=== PATIENT | female | born 1995 | race Caucasian/White ===

== ENCOUNTER 2023-11-20 14:08 | Emergency (ER) | payer SELFPAY ==
[~2023-11-20] VITALS: Ht 157.5 cm; Wt 51.0 kg
[2023-11-20] VITALS (9 sets, daily range): BP systolic 93–117; BP diastolic 61–78
[2023-11-20 14:54] LABS: BASO% 0.4 % (0-3); EOS% 1.3 % (0-8); HEMATOCRIT 36.2 % (37.0-47.0); HEMOGLOBIN 11.4 g/dl (12.0-16.0); IMMATURE GRANULOCYTES 0.2 % (0.0-5.0); LYMPH% 17.2 % (15-41); MEAN CELL VOLUME 89.2 fL CALC (80.0-100.0); MEAN CORPUSCULAR HGB 28.1 pG CALC (26.0-32.0); MEAN CORPUSCULAR HGB CONC 31.5 g/dL CAL (32.0-36.0); MONO% 6.5 % (2-13); NEUT# 3.9 thou/uL (2.00-7.15); NEUT% 74.4 % (42-76); RED BLOOD COUNT 4.06 mill/uL (4.20-5.60); RED CELL DISTRI WIDTH 13.7 % (11.5-15.5)
[2023-11-20 14:54] LABS: URINE BILIRUBIN - DIPSTICK Negative (NEGATIVE); URINE BLOOD DIPSTICK Negative (NEGATIVE); URINE GLUCOSE - DIPSTICK Negative (NEGATIVE); URINE KETONE Negative (NEGATIVE); URINE LEUK ESTERASE Negative (NEGATIVE); URINE NITRITE - DIPSTICK Negative (Negative); URINE PROTEIN - DIPSTICK Negative (NEG-TRACE); URINE UROBILINOGEN - DIPSTICK 0.2 E.U./dL (0.2)
[2023-11-20 14:55] LABS: URINE COLOR Yellow
[2023-11-20 15:06] LABS: ALBUMIN 4.1 g/dL (3.2-5.0); ALKALINE PHOSPHATASE 37 u/l (38-126); ANION GAP 9 (6-22 (CALC)); BILIRUBIN, TOTAL 0.5 mg/dL (0.02-1.3); BUN 7 mg/dL (7-17); BUN/CREATININE RATIO 11 (12-20 (CALC)); CARBON DIOXIDE 25 mmol/l (22-30); CHLORIDE 109 mmol/l (95-108); CREATININE 0.7 mg/dL (0.5-1.0); ESTIMATED GFR 121 ML/MIN (>=90 (CALC)); POTASSIUM 3.8 mmol/l (3.5-5.1); SGOT/AST 21 u/l (14-36); SODIUM 140 mmol/l (137-146); TOTAL PROTEIN 6.6 g/dL (6.3-8.2)
[2023-11-20 15:22] LABS: BETA-HCG, QUANT(RESULT NUMBER) <2 mIU/mL
== END 2023-11-20 16:15 | disposition home or self-care (01) | DRG 761 ==
LOC: ED 14:08
PROVIDERS: Nurse Practitioner
DX: N93.9 Abnormal uterine and vaginal bleeding, unspecified (principal); N80.9 Endometriosis, unspecified; Z90.79 Acquired absence of other genital organ(s)